=== PATIENT | male | born 1975 | race Caucasian/White ===

== ENCOUNTER 2016-12-20 05:29 | Emergency (ER) | payer BC, OTHER ==
--- NOTE | 2016-12-20 05:43 | ERPHSYRPT ---
- History of Present Illness Time Seen by Provider: 12/20/16 05:30 Source: patient Exam Limitations: no limitations Patient Subjective Stated Complaint: PT STS GETTING READY FOR WORK AND WAS CLEANING EARS, STS QTIP BROKE OFF IN RIGHT EAR. Triage Nursing Assessment: PT ALERT, ORIENTED, ANSWERS ALL QUESTIONS APPROPRIATELY. SKIN P/W/D, RESPS NON-LABORED. PT AMBULATORY TO TX ROOM, STEADY GAIT NOTED. PT APPEARS ANXIOUS. Physician History: ABOUT 20 MINUTES AGO PT BROKE OFF THE END OF A Q-TIP IN HIS RIGHT EAR. PT DENIES PAIN, FEVER, NAUSEA, VOMITING. Allergies/Adverse Reactions: No Known Drug Allergies Allergy (Unverified 09/11/14 09:31) Home Medications: Lansoprazole [Prevacid] 15 mg PO DAILY 09/11/14 [History] Hx Tetanus, Diphtheria Vaccination/Date Given: Yes Hx Influenza Vaccination/Date Given: No Hx Pneumococcal Vaccination/Date Given: No - Review of Systems Ears, Nose, & Throat: Other (F.B.(Q-TIP END) IN RIGHT EAR THIS AM.) All Other Systems: Reviewed and Negative - Past Medical History Pertinent Past Medical History: Yes Cardiac History: Hypertension GI Medical History: Ulcer - Past Surgical History Past Surgical History: No - Social History Smoking Status: Current every day smoker How long have you smoked: 20 Exposure to second hand smoke: No Drug Use: none Patient Lives Alone: No - Nursing Vital Signs Nursing Vital Signs: Initial Vital Signs Temperature 98.0 F Temperature Source Oral Pulse Rate 72 Respiratory Rate 16 Blood Pressure [Right Arm] 195/107 Pain Intensity 3 - Physical Exam General Appearance: alert Eye Exam: bilateral eye: PERRL, EOMI Ear Exam: right ear: other (PART OF A Q-TIP IN RIGHT EAC: REMOVED WITH ALLIGATOR FORCEPS. POST REMOVAL RIGHT TM WNL.), left ear: TM normal Nasal Exam: normal inspection Throat Exam: pharynx normal Neck Exam: normal inspection Cardiovascular/Respiratory Exam: normal breath sounds, heart sounds normal Abdominal Exam: soft (B.S. NORMAL) Neurologic Exam: alert, cooperative Skin Exam: warm, dry SpO2 Interpretation: normal SpO2: 97 Oxygen Delivery: Room Air - Course Nursing assessment & vital signs reviewed: Yes - Departure Time of Disposition: 05:44 Departure Disposition: Home Clinical Impression: F.B.(Q-TIP END) REMOVAL FROM RIGHT EAR Condition: Fair Critical Care Time: No Instructions: Removal of Foreign Body From Ear Additional Instructions: FOLLOW UP WITH PRIVATE DOCTOR TOMORROW.
[2016-12-20 05:59] VITALS: BP 190/117; PULSE 67; O2SAT 99
== END 2016-12-20 05:55 | disposition home or self-care (01) ==
LOC: ED 05:29
DX: T16.1XXA Foreign body in right ear, initial encounter (principal)
CPT/HCPCS: 99281; 99282

== ENCOUNTER 2019-02-14 12:33 | Emergency (ER) | payer BC ==
[2019-02-14] MEDS ORDERED: Catapres 0.1 MG ONE (12:58)
[2019-02-14] MEDS: Catapres 0.1 MG PO ONE (13:07)
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
[2019-02-14 13:28] VITALS: BP 188/100; PULSE 78; O2SAT 98
== END 2019-02-14 13:28 | disposition home or self-care (01) ==
LOC: ED 12:33
DX: I10 Essential (primary) hypertension (principal); Z91.19 Patient's noncompliance with other medical treatment and regimen; Z79.899 Other long term (current) drug therapy
CPT/HCPCS: 99283; A9270-GY

== ENCOUNTER 2022-10-02 05:50 | Day surgery (SDC) | payer BC ==
[2022-10-02] MEDS ORDERED: Lactated Ringers 1,000 ML IV SCH (07:00)
[2022-10-02] MEDS ORDERED: Versed 2 MG/2 ML Injection ONE (07:27)
[2022-10-02] MEDS ORDERED: Xylocaine-Mpf 2% 5 Ml Vial ONE (07:27)
[2022-10-02] MEDS ORDERED: DIPRIVAN 200 MG/20 ML IV ONE ×2 (07:27→07:38)
[2022-10-02 08:45] VITALS: BP 157/84; PULSE 51; O2SAT 100
--- NOTE | 2022-10-02 09:11 | OP ---
SURGERY DATE/TIME: 10/02/2022 0727 PREOPERATIVE DIAGNOSIS: Screening exam. POSTOPERATIVE DIAGNOSIS: Small polyps in the rectosigmoid and rectum. PROCEDURE: Colonoscopy with cold forceps biopsy. SURGEON: Dr. Rocky Hamilton. ANESTHESIA: MAC. Medications given by anesthesia department. HISTORY: The patient is a 47-year-old white male patient presenting now for screening colonoscopy. He was appraised of the risks of the procedure including the risk of perforation, phlebitis, untoward reaction to medication, bleeding and missed lesions. The patient verbalized his understanding and desired to have the procedure performed. DESCRIPTION OF PROCEDURE: The patient was given the medications by the anesthesia department. He had continuous pulse oximetry, ECG monitoring, intermittent blood pressure monitoring during the examination. He was placed in the left lateral decubitus position. A digital rectal examination was performed and revealed normal anal sphincter tone, no masses and normal prostate. The flexible Olympus pediatric colonoscope was used to intubate the rectum. A view of the colon was developed sequentially to the cecum. Upon insertion and withdrawal including a retroflex view in the rectum was noted small polyps in the rectosigmoid and sigmoid areas. These were biopsied using cold biopsy technique. No other mucosal lesions being encountered, the scope was removed from the patient who tolerated the procedure well and sent back to outpatient recovery in good condition. The prep was noted to be fair with fairly large amounts of liquid stool in the colon.
== END 2022-10-02 08:40 | disposition home or self-care (01) ==
LOC: SDC 05:50
PROVIDERS: ATTEND Family Medicine
DX: Z12.11 Encounter for screening for malignant neoplasm of colon (principal); K63.5 Polyp of colon; K62.1 Rectal polyp
CPT/HCPCS: J2250; J2704